=== PATIENT | female | born 1955 | race Caucasian/White ===

== ENCOUNTER 2024-08-01 13:15 | Emergency (ER) | payer MEDICARE, SELFPAY ==
--- NOTE | 2024-08-01 13:19 | ED.URI ---
HPI - URI/Sore Throat General Chief Complaint: Upper Respiratory Infection Stated Complaint: wheezing, covid+ Friday Time Seen by Provider: 08/01/24 13:19 Source: patient Mode of arrival: ambulatory Limitations: no limitations History of Present Illness HPI Narrative: Prabhjot is a 60-year-old female patient presenting to the clinic today with complaints of wheezing. She reports she tested positive for COVID on Friday. She denies any shortness of breath or chest pain. Reports that when she was lying down last night she had a mildly productive cough and felt as though she was wheezing. No fevers or chills. She is a nonsmoker. No history of asthma or COPD. MD elicited complaint: sore throat and nasal congestion Related Data Home Medications Medication Instructions Recorded Confirmed aspirin 81 mg chewable tablet 81 mg PO DAILY 08/01/24 08/01/24 atorvastatin 20 mg tablet 20 mg PO HS 08/01/24 08/01/24 carvedilol 25 mg tablet 25 mg PO BID 08/01/24 08/01/24 hydrochlorothiazide 12.5 mg capsule 12.5 mg PO EVERY OTHER DAY 08/01/24 08/01/24 levothyroxine 88 mcg tablet 88 mcg PO DAILY 08/01/24 08/01/24 losartan 100 mg tablet 100 mg PO DAILY 08/01/24 08/01/24 Allergies Allergy/AdvReac Type Severity Reaction Status Date / Time diphenhydramine AdvReac Intermediate Jittery Verified 08/01/24 13:36 [From Benadryl] lisinopril AdvReac Mild Cough Verified 08/01/24 13:36 Review of Systems Review of Systems: Pertinent positives per HPI. Patient denies any fever, chills, rash, headache, visual changes, dizziness, shortness of breath, chest pain, palpitations, nausea, vomiting, diarrhea, constipation, abdominal pain, or any urinary issues. PMFSH Comments At the time of my signature, I reviewed and agree with the nursing past medical, surgical, social, and family history. There is no relevant family history pertinent to the patient complaint. Exam Narrative: General: Well-developed, well nourished, in no apparent distress Head: Normocephalic, atraumatic Eyes: Pupils equally round and reactive to light bilaterally, EOM intact, sclera and conjunctive clear, no discharge, lids normal Ears: TMs intact and clear, ear canals clear, no drainage, grossly hearing normal. Nose: Nares patent, no discharge, no inflammation, no sinus tenderness. Mouth: Oral pharynx without lesions or masses, good dentition, MMM. Neck: Supple, trachea midline, no enlargement of anterior or posterior cervical nodes, no thyroid masses or goiter palpable. Cardio: Regular rate and rhythm, s1 and s2 normal, no murmur appreciated. Resp: Clear to auscultation bilaterally, no rhonchi, rales, wheezing or rubs Course Course Emergency Course: Portions of this record may have been created with voice recognition software. Level of Care: Express Care Visit Vital Signs Vital signs: Vital Signs Temperature 36.4 C L 08/01/24 13:31 Pulse Rate 75 08/01/24 13:31 Respiratory Rate 18 08/01/24 13:31 Blood Pressure 139/94 H 08/01/24 13:31 Pulse Oximetry 97 08/01/24 13:31 Oxygen Delivery Room Air 08/01/24 13:31 Temperature 36.4 C L 08/01/24 13:31 Pulse Rate 75 08/01/24 13:31 Respiratory Rate 18 08/01/24 13:31 Blood Pressure 139/94 H 08/01/24 13:31 Pulse Oximetry 97 08/01/24 13:31 Oxygen Delivery Room Air 08/01/24 13:31 Vital signs reviewed MDM - URI/Sore Throat MDM Narrative Medical decision making narrative: At the time of visit patient is resting comfortably on the exam table. Patient appears to be nontoxic. Plan: I suspect patient has intermittent wheezing with COVID-19. Will send in prescription for albuterol inhaler. Supportive measures were discussed with the patient and they voiced understanding discharge instructions and agrees to treatment plan. Return precautions reviewed Differential Diagnosis Differential diagnosis: Likely upper respiratory infection, otitis media, sinusitis, viral infection, bronchi
[2024-08-01 13:31] VITALS: BP 139/94; PULSE 75; RESP 18; TEMP 36.4; O2SAT 97
== END 2024-08-01 13:39 | disposition home or self-care (01) ==
PROVIDERS: Emergency Provider Nurse Practitioner Family; PCP Family Medicine Sports Medicine
DX: U07.1 COVID-19 (principal); E78.00 Pure hypercholesterolemia, unspecified; I10 Essential (primary) hypertension; E03.9 Hypothyroidism, unspecified; Z86.16 Personal history of COVID-19; Z79.82 Long term (current) use of aspirin
CPT/HCPCS: 99203; G0463

== ENCOUNTER 2025-04-03 08:29 | Emergency (ER) | payer MEDICARE, SELFPAY ==
--- OUTSIDE RECORDS SUMMARY | 2025-04-03 08:31 | XMS_ITS | Continuity of Care Document ---
Author Organization [facility] Address [address] [place] [id number] Phone Care Team Providers Care Road Worker Name Role Phone Jamal Fung MD Unavailable Unavailable Allergies, Adverse Reactions, Alerts Substance Reaction Status Criticality No Known Allergies Active No Inform ation Medications Medication Instructions Dosage Effective Dates (start - stop) Status Comments hydrochlorothiazide 25 mg tablet - Active metoprolol tartrate 25 mg tablet - Active aspirin 81 mg tablet,delayed release - Active Fish Oil 1,000 mg capsule - Acti ve Vitamin D3 1,000 unit capsule - Active Procedures Procedure Date RADEX HIP UNI COMPL MINIMUM 2 VIEWS RADEX PELVIS 1/2 VIEWS OFFICE/OUTPATIENT VISIT EST RADEX PELVIS 1/2 VIEWS RADEX HIP UNI COMPL MINIMUM 2 VIEWS POSTOP FOLLOW-UP VISIT POSTOP FOLLOW-UP VISIT POSTOP FOLLOW-UP VISIT POSTOP FOLLOW-UP VISIT OFFICE/OUTPATIENT VISIT NEW Advance Directives Directive Yes / No Effective Date File Name No Information Encounters Encounter Description Practice Location Reason(s) For Visit Diagnoses Date Provider Providers Copied on Encounter OFFICE/OUTPAT IENT VISIT EST [facility] , [address] [facility] [address], [place], [address], [place] [phone] [facility] Status post total hip replacement, leftPrimary osteoarthritis of left hip 5 Antonieta Berry. [address] [place], [place], [id number] . tel: [phone] [facility] , [address] [facility] [address], [address], tel:[phone] [facility] Status post THR (total hip replacement) 5 Fissel Jamal. [address] [facility] [address] [place], [place], [id number] . tel: [phone] [facility] , [address], [address], tel:[phone] [facility] Status post THR (total hip replacement) 5 Fissel Jamal. [address] [facility] [address] [place], [place], [id number] . tel: [phone] [facility] , [address], [address], tel:[phone] [facility] Status post THR (total hip replacement) 5 Fissel Jamal. [address] [facility] [address] [place], [place], [id number] . tel: [phone] OFFICE/OUTPAT IENT VISIT NEW [facility] , [address], [address], tel:[phone] [facility] Osteoarthritis of left hip 5 Fissel Jamal. [address] [facility] [place], [id number] . tel: [phone] Referring Provider: Meron Baltazar[address], [place], [address] . tel:[phone] Family History Family Member Type Diagnosis Age At Onset Sister Problem (finding) Leukemia Father Problem (finding) Cardiovascular disease Mother Problem (finding) Arthritis Payers Payer name Insurance type Covered constitution party ID Authorrosalbaa tizhou(s) [facility] Choice/Choice Plus E2 [id number] Social History Type Description Quantity Date Captured Comments Alcohol Use Details Unknown Caffeine Use Details Unknown Tobacco Use Status Smoking Status No Information Sex Female Chief Complaint And Reason For Visit No Information Reason For Referral Reason For Referral No Information Plan Of Treatment Date Type Action Status Referral Ordered: RADEX HIP UNI COMPL MINIMUM 2 VIEWS LT ordered Referral Ordered: RADEX PELVIS 1/2 VIEWS ordered History Of Present Illness Encounter Date Complaint History Of Prese nt Illness No Information Functional Status Date Functional Assessmen t No Information Instructions Date Instruction Additional Infor matdb Home exercise program. Related t o Status post total hip replacement, left Home exercise program. Related t o Status post THR (total hip replacement) Discussed treatment options Rela awa to Status post THR (total hip replacement) Home exercise program. Related t o Status post THR (total hip replacement) Home exercise program. Related t o Status post THR (total hip replacement) Home exercise program. Related t o Osteoarthritis of left hip Discussed surgical options Relat ed to Osteoarthritis of left hip Assessments Type Assessment Date assessment Status post total hip replacemen t, left assessment Primary osteoarthritis of left h ip Patient Care Teams Name Effective Dates (start - stop) Status Members No Information
--- OUTSIDE RECORDS SUMMARY | 2025-04-03 08:34 | XMS_ITS | Continuity of Care Document ---
Author Organization [facility] Address [address] [place] [address] Phone Care Team Providers Care Engineering Agent Name Role Phone Jamal Fung MD Unavailable [...] OFFICE/OUTPAT IENT VISIT EST [facility] , [address] [facility] [address], [place], [address], [place] [phone] [facility] Status post total hip replacement, leftPrimary osteoarthritis of left hip 5 Antonieta Berry. [address] [place], [place], [id number] . tel: [phone] [facility] , [address] [facility] [address], [address], tel:[phone] [facility] Status post THR (total hip replacement) 5 Fissel Jamal. [address] [facility] [address] [place], [place], [id number] . tel: [phone] [facility] , [address], [address], tel:[phone] [facility] Status post THR (total hip replacement) 5 Fissel Jamal. [address] [facility] [address] [place], [place], [id number] . tel: [phone] [facility] , [address], [address], tel:[phone] [facility] Status post THR (total hip replacement) 5 Fissel Jamal. [address] [facility] [address] [place], [place], [id number] . tel: [phone] OFFICE/OUTPAT IENT VISIT NEW [facility] , [address], [address], tel:[phone] [facility] Osteoarthritis of left hip 5 Fissel Jamal. [address] [facility] [place], [address] . tel: [phone] Referring Provider: Meron Balta[address], [place], [address] . tel:[phone] Family History Family Member Type Diagnosis Age At Onset Sister Problem (finding) Leukemia Father Problem (finding) Cardiovascular disease Mother Problem (finding) Arthritis Payers Payer name Insurance type Covered libertarian ID Authorrosalbaa tizhou(s) [facility] Choice/Choice Plus E2 [id number] Social History Type Description Quantity Date Captured [...]
--- OUTSIDE RECORDS SUMMARY | 2025-04-03 08:35 | XMS_ITS | Clinical Summary ---
Author Organization [facility] Address [address] [place] [address] Care Team Providers Care Cloth Washer Operator Name Role Phone GraceMeron Giovanny DAS Primary Care Provider [phone] Alan Santamaria MD, Mendoza Unavailable [phone] Neida Geiger ANP- Unavailable [phone] Allergies Active Allergy Reactions Criticality Noted Date Comments Diphenhydramine Other (see comment) Low 03/05/2018 agitated Lisinopril Cough Medium 10/05/2018 2015 Medications aspirin EC 81 MG tablet Take 1 tablet (81 mg total) by mouth daily. 30 tablet 11 8 Active Cholecalciferol (VITAMIN D3) 50 MCG (2000 UT) Cap Take 2 capsules by mouth daily. Active vitamin B-12 (CYANOCOBALAMIN) 500 MCG tablet Take 5 tablets (2,500 mcg total) by mouth daily. Active atorvastatin (LIPITOR) 20 MG tabletIndications:A (arteriosclerotic vascular disease) Take 1 tablet (20 mg total) by mouth nightly at bedtime. 90 tablet 1 5 Active carvedilol (COREG) 25 MG tabletIndications:A (arteriosclerotic vascular disease) Take 1 tablet (25 mg total) by mouth 2 (two) times daily with meals. 180 tablet 1 5 Active hydroCHLOROthiazide (MICROZIDE) 12.5 MG capsuleIndications: Essential hypertension Take 1 capsule (12.5 mg total) by mouth every other day. 45 capsule 1 5 Active levothyroxine (SYNTHROID) 88 MCG tabletIndications:A cquired hypothyroidism Take 1 tablet (88 mcg total) by mouth daily. 90 tablet 3 5 Active losartan (COZAAR) 100 MG tabletIndications:E ssential hypertension Take 1 tablet (100 mg total) by mouth daily. 90 tablet 1 5 Active Active Problems Problem Noted Date Diagnosed Date B12 deficiency 02/01/2025 ASVD (arteriosclerotic vascular disease) 020 Family history of brain aneurysm 01/27/2020 GI bleed 12/22/2018 Thoracic aortic aneurysm without rupture 019 Overview (12/20/2021): Last Assessment & Plan: Stable on TTE today Follow up with [facility] in 2022 Continue BB Ascending aorta enlargement 04/30/2018 Overview (10/05/2018): Date Onset: 04/30/2018 PFO (patent foramen ovale) ([facility]) 04/30/2018 Overview (10/05/2018): Date Onset: 04/30/2018 Essential hypertension 03/17/2018 Overview (05/11/2020): Date Onset: 04/30/2018 Dyslipidemia 03/17/2018 Anxiety 02/23/2018 Overview (10/05/2018): Date Onset: 02/23/2018 Chest pain 02/23/2018 Overview (10/05/2018): Date Onset: 02/23/2018 DJD (degenerative joint disease), thoracic 02/23 Overview (10/05/2018): Date Onset: 02/23/2018 Fatty liver 02/23/2018 Overview (10/05/2018): Date Onset: 02/23/2018 Hemangioma of liver 02/23/2018 Overview (10/05/2018): Date Onset: 02/23/2018 SHAIKH (nonalcoholic steatohepatitis) 02/23/2018 Overview (10/05/2018): Date Onset: 02/23/2018 Obesity (BMI 30-39.9) 02/23/2018 Overview (10/05/2018): Date Onset: 07/21/2017 Overweight 02/23/2018 Overview (10/05/2018): Date Onset: 02/23/2018 Umbilical hernia 02/23/2018 Overview (10/05/2018): Date Onset: 02/23/2018 Hypothyroidism 07/21/2017 Overview (10/05/2018): Date Onset: 07/21/2017 Vitamin D deficiency 07/15/2017 Overview (10/05/2018): Date Onset: 07/15/17 Surgical follow-up care 05/15/2015 Overview (10/05/2018): Date Onset: 05/15/2015 Mixed hyperlipidemia 05/04/2012 Overview (12/20/2021): Last Assessment & Plan: Continue high intensity statin. Resolved Problems Problem Noted Date Diagnosed Date Resolved Date Usual interstitial pneumonit is ([facility]) 02/23/2018 12/31/2022 Overview (10/05/2018): Date Onset: 02/23/2018 Encounters Date Type Department Care Team Description 02/01/2025 9:40 AM CDT Office Visit [address] [place] [address] Meron Grace, DO Medication Management (Pt states she forgot to take her BP meds this am.//AB) 02/01/2025 Travel from Last 3 Months Immunizations Immunization Administration Dates Next Due Arexvy Respiratory Syncytial Virus (RSV, adjuvanted) 0.5 mL, PF 08/09/2023 Fluzone 6 Months+ Quad (0.5 mL Prefilled Syringe) 08/03/2020,08/02/2019 Fluzone High Dose (IIV, triv alent, 0.5mL) 09/18/2024 Fluzone High Dose - >Age 65 (Prefilled Syringe) 08/09/2023,08/17/2022,08/29/2021 Influenza (Generic) 09/07/2018,08/26/2017 Influenza Adult (Generic) 08/29/2021,08/2020,08/03/2020,2018,08/02/2019,09/07/2018,09/07/2018,1 ,08/26/2017,08/28/2016, 016 MODERNA COVID-19 (12+) MRNA, LNP-S, PF, 100 MCG/ 0.5 ML DOSE 10/01/2021,10/01/2021,01/10/2021,2020,12/13/2020,12/13/2020 MODERNA COVID-19 (APPLICATION ARCHITECT MANAGER MARCIO ARLINE), MRNA, LNP-S, PF, 50 MCG/ 0.25 ML DOSE 06/25/2022 PFIZER COVID-19 BIVALENT (12 +) mRNA, LNP-S, PF, 30 MCG/0.3 ML DOSE 08/17/2022 Pneumococcal (Pneumovax 23) 03/15/2023 Pneumococcal (Prevnar 13) 08/29/2021,08/29/2021 Shingrix 08/02/2019, 9,06/01/2019,2018 Td (TDVAX) 09/19/2006 Tdap (Generic) 08/09/2017,08/09/2017,08/09/2017 Tetanus/Diptheria 09/19/2006 Zoster (Zostavax) 18992 Unt/0.65Ml 08/09/2017, Family History Medical History Relation Comments Cancer Brother 4 Kidney myotonic dystrophy Daughter 1 Hypertension Father Open Heart Father Stent Cardiac Father Stroke Father Aneurysm Mother Arthritis Mother Cancer Sister 3 Leukemia Relation Status Comments Brother 1 Brother 2 Alive Brother 3 Alive Brother 4 Daughter 1 Alive Daughter 2 Alive Father Mother Alive Sister 1 Sister 2 Sister 3 Son Alive Social History Tobacco Use Types Packs/Day Years Used Date Smoking Tobacco: Former Cigarettes 0.3 15 Q uit: 2008 Passive Smoke Exposure: Past Smokeless Tobacco: Never Tobacco Cessation:Counseling Given: No Alcohol Use Standard Drinks/Week Comments Yes 0 (1 standard drink = 0.6 oz pur e alcohol) Rarely. Ine drink every 6 mo PHQ-2 Answer Date Recorded Patient Health Questionnaire-2 Score 0 02/01/2025 Comments No Sex and Gender Information Value Date Recorded Sex Assigned at Female 02/01/2025 9:36 AM CDT Legal Sex Female 5:35 PM CDT Gender Identity Not on file Sexual Orientation Not on file Occupation Industry Job Start Date Job End Date Not on file Not on file Not on file Not on file Last Filed Vital Signs Vital Sign Reading Time Taken Comments Blood Pressure 146/80 02/01/2025 9:40 AM CDT Pulse 74 02/01/2025 9:32 AM CDT Temperature 36.6 C (97.8 F) 02/01/2025 9:32 AM CDT Respiratory Rate 12 02/01/2025 9:32 AM CDT Oxygen Saturation 96% 02/01/2025 9:32 AM CDT Inhaled Oxygen Concentration - - Weight 83.5 kg (184 lb) 02/01/2025 9:32 AM CDT Height 157.5 cm (5' 2 ) 02/01/2025 9:32 AM CDT Body Mass Index 33.65 02/01/2025 9:32 AM CDT Plan of Treatment Health Maintenance Due Date Last Done Comments Hepatitis C 1973 Annual Medicare Wellness Visit 2020 COVID-19 Vaccine ( season) 2024 09/19/2023, 08/17/2022, 06/25/2022, Additional history exists ASCVD LDL 08/05/2024 08/05/2023, 03/24, 03/15/2021, Additional history exists Colorectal Cancer Screening FIT-DNA (3 Years) 04/10/2025 04/10/2022, 04/10/2022 Mammogram Screening 02/25/2026 02/26/2024, 10/22/2022, 03/22/2021, Additional history exists DTaP, Tdap and Td Vaccines (4 - Td or Tdap) 08/09/2027 08/09/2017, 08/09/2017, 08/09/2017, Additional history exists Zoster Vaccines Completed 08/02/2019, 07/2019, 06/01/2019, Additional history exists Dexa Scan (General) Completed 03/22/2021, Pneumococcal Vaccine: 50+ Years Completed 03/15/2023, 08/29/2021, 08/29/2021 RSV Immunization or 60+ Years Completed 08/09/2023 PHQ-2 (Physician [place]) Completed 02/01/2025 Meningococcal B Vaccine Aged Out No l onger eligible based on patient's age to complete this topic Meningococcal Vaccine Aged Out No mihir irais eligible based on patient's age to complete this topic RSV Immunizations Under 20 Months Aged Out No longer eligible based on patient's age to complete this topic Procedures Procedure Name Priority Date/Time Associated Diagnosis Comments MAMMOGRAM GENERIC (SCAN ORDER) 02/26/2024 LIPID PANEL Routine 08/05/2023 8:15 AM CDT Essential hypertension Dyslipidemia COLOGUARD (EXACT SCIENCE) Routine 04/10/2022 5:28 PM CDT Colon cancer screening BONE DENSITY/DEXA Routine 03/22/2021 12: 00 AM CDT Post-menopausal from Last 3 Months or Most Recently Relevant to Health Maintenance Results * MAMMOGRAM GENERIC (SCAN ORDER) (02/26/2024) Anatomical Region Laterality Modality Other 02/26/2024 us Doc [facility] Scanned SCANNING Final Resu lt * LIPID PANEL (08/05/2023 8:15 AM CDT) CHOLESTEROL 131 0 - 200 MG/DL 08/05/2023 9:44 AM CDT [facility] TRIGLYCERIDES 105 0 - 150 MG/DL 08/05/2023 9:44 AM CDT [facility] HDL 49 >40 MG/DL 08/05/2023 9:44 AM CDT [facility] LDL (CALCULATED) 61 <100 MG/DL 08/05/2023 9:44 AM CDT [facility] NON HDL CHOLESTEROL 82 0 - 130 MG/DL 08/05/2023 9:44 AM CDT [facility] Comment: NOTE: WHEN THE TRIGLYCERIDES ARE >200 mg/dL, NON HDL C IS A SECONDARY TARGET OF THERAPY, WITH A GOAL 30 mg/dL HIGHER THAN THE IDENTIFIED LDL C GOAL. CHOL/HDL RATIO 2.7 0.0 - 4.5 08/05/2023 9:44 AM CDT [facility] VLDL CALCULATION 21 5 - 55 MG/DL 08/05/2023 9:44 AM CDT [facility] LIPID INTERPRETATION 08/05/2023 9:44 AM CDT [facility] Comment: NIH CONCENSUS REPORT RECOMMENDATIONS: ADULT CHILD LOW RISK: CHOLESTEROL <200 <170 TRIGLYCERIDE <150 --- HDL >=60 --- LDL <100 <110 BORDERLINE: CHOLESTEROL 200-239 170-199 TRIGLYCERIDE 150-199 --- HDL 40-59 --- LDL 100-159 110-129 HIGH RISK: CHOLESTEROL >=240 >=200 TRIGLYCERIDE >=200 --- HDL <40 --- LDL >=160 >=130 08/05/2023 8:15 AM CDT Meron Grace DO LABORATORY Final Result [facility] [address] [place] [address], * COLOGUARD (EXACT SCIENCE) (04/10/2022 5:28 PM CDT) COLOGUARD RESULT Negative Negative [facility] (CLIA #:[id number]) Comment: NEGATIVE TEST RESULT. A negative Cologuard result indicates a low likelihood that a colorectal cancer (CRC) or advanced adenoma (adenomatous polyps with more advanced pre-malignant features) is present. The chance that a person with a negative Cologuard test has a colorectal cancer is less than 1 in 1500 (negative predictive value >99.9%) or has an advanced adenoma is less than 5.3% (negative predictive value 94.7%). These data are based on a prospective cross-sectional study of 10,000 individuals at average risk for colorectal cancer who were screened with both Cologuard and colonoscopy. (Ale Thomas al, N Engl J Med 2014;370(14):8327-0204) The normal value (reference range) for this assay is negative. COLOGUARD RE-SCREENING RECOMMENDATION: Periodic colorectal cancer screening is an important part of preventive healthcare for asymptomatic individuals at average risk for colorectal cancer. Following a negative Cologuard result, the [place] Cancer Society and U.S. Multi-Society Task Force screening guidelines recommend a Cologuard re-screening interval of 3 years. References: [place] Cancer Society Guideline for Colorectal Cancer Screening: https://www.cancer.org/cancer/mwmay-sofxhp-dojptv/tdafobvhe-atqyyuvxa-mtxwqgn/ac s-rec ommendations.html.; Mumtaz MADRIGAL, Emily FREGOSO, Eryn SantosK, Colorectal Cancer Screening: Recommendations for Physicians and Patients from the U.S. Multi-Society Task Force on Colorectal Cancer Screening , Am J Gastroenterology 2017; 112:7922-6797. TEST DESCRIPTION: Composite algorithmic analysis of stool DNA-biomarkers with hemoglobin immunoassay. Quantitative values of individual biomarkers are not reportable and are not associated with individual biomarker result reference ranges. Cologuard is intended for colorectal cancer screening of adults of either sex, 45 years or older, who are at average-risk for colorectal cancer (CRC). Cologuard has been approved for use by the U.S. FDA. The performance of Cologuard was established in a cross sectional study of average-risk adults aged 50-84. Cologuard performance in patients ages 45 to 49 years was estimated by sub-group analysis of near-age groups. Colonoscopies performed for a positive result may find as the most clinically significant lesion: colorectal cancer [4.0%], advanced adenoma (including sessile serrated polyps greater than or equal to 1cm diameter) [20%] or non- advanced adenoma [31%]; or no colorectal neoplasia [45%]. These estimates are derived from a prospective cross-sectional screening study of 10,000 individuals at average risk for colorectal cancer who were screened with both Cologuard and colonoscopy. (Ale Springer et al, N Engl J Med 2014;370(14):4530-9680.) Cologuard may produce a false negative or false positive result (no colorectal cancer or precancerous polyp present at colonoscopy follow up). A negative Cologuard test result does not guarantee the absence of CRC or advanced adenoma (pre-cancer). The current Cologuard screening interval is every 3 years. ([place] Cancer Society and U.S. Multi-Society Task Force). Cologuard performance data in a 10,000 patient pivotal study using colonoscopy as the reference method can be accessed at the following location: www.[employer] Experience.Acorio/results. Additional description of the Cologuard test process, warnings and precautions can be found at www.cologuard.Acorio. STOOL STOOL SPECIMEN / Unknown 04/10/2022 5:28 PM CDT 04/12/2022 9:35 AM CDT Meron Baltazar Grace DO BODY FLUIDS AND STOOLS ORDERABLE S Final Result [facility] ([facility]) [address] [place] [place] [address], [facility] (CLIA #:[id number]) [address] [place] [address] [place] [address] * BONE DENSITY/DEXA (03/22/2021 12:00 AM CDT) Anatomical Region Laterality Modality Bone Bone Density 03/22/2021 Meron Grace DO DEXA Final Result from Last 3 Months or Most Recently Relevant to Health Maintenance Insurance MEDICARE AARP Care Teams Cloth Washer Operator Relationship Specialty Start Date End Date Meron Grace DO [address] [place] [address] PCP - General FAMILY PRACTICE 02/20/18 [place] Phillips MD [address] [place] [address] [place] [employer] CARDIOVASCULAR DISEASE 02/20/18 Neida Geiger ANP- [address] [place] [address] [id number] [place] [address] CARDIOVASCULAR DISEASE 03/05/18
--- OUTSIDE RECORDS SUMMARY | 2025-04-03 08:35 | XMS_ITS | Encounter Summary ---
Author Organization [facility] Address Formerly [facility] [place] [address] Care Team Providers Care Family Practice Medical Doctor Name Role Phone Meron Grace Giovanny DAS Primary Care Provider [phone] Alan Santamaria MD, Mendoza Unavailable [phone] Neida Geiger BANNER Unavailable [phone] Encounter Details Date Type Department Care Team (Late st Contact Info) Description 05/01/2018 Abstract [facility] [address] [place] [address] Mendoza Phillips MD [address] [address] Social History Tobacco Use Types Packs/Day Years Used Date Smoking Tobacco: Former Cigarettes Q uit: 2008 Smokeless Tobacco: Never Alcohol Use Standard Drinks/Week Comments Yes 0 (1 standard drink = 0.6 oz pur e alcohol) rarely Comments Unknown Sex and Gender Information Value Date Recorded Sex Assigned at Female 02/01/2025 9:36 AM CDT Legal Sex Female 5:35 PM CDT Gender Identity Not on file Sexual Orientation Not on file Occupation Industry Job Start Date Job End Date Not on file Not on file Not on file Not on file documented as of this encounter Plan of Treatment Not on file documented as of this encounter Procedures Procedure Name Priority Date/Time Associated Diagnosis Comments LIPID PANEL Routine 04/24/2018 documented in this encounter Results * LIPID PANEL (04/24/2018) CHOLESTEROL 143 HDL 42 TRIGLYCERIDES 107 LDL (CALCULATED) 80 04/24/2018 us Doc [facility] LABORATORY Final Result documented in this encounter Visit Diagnoses Not on filedocumented in this encounter Additional Health Concerns Infection Onset Date Last Indicated Resolved Time COVID-19 Confirmed 04/17/2022 04/17/2022 12:33 AM CDT COVID-19 Rule Out 04/18/2022 04/18/2022 04/18/2022 4:23 PM CDT COVID-19 Rule Out 01/03/2024 01/03/2024 01/06/2024 10:36 AM RN COMMUNITY COVID-19 Rule Out 01/09/2024 01/09/2024 01/09/2024 9:01 AM RN COMMUNITY documented as of this encounter Care Teams Family Practice Medical Doctor Relationship Specialty Start Date End Date Meron Grace DO [address] [place] [address] PCP - General FAMILY PRACTICE 02/20/18 [place] Phillips MD [address] [place] [address] [employer] CARDIOVASCULAR DISEASE 02/20/18 Neida Geiger ANP- [address] [place] [address] [address] [place] [address] CARDIOVASCULAR DISEASE 03/05/18 documented as of this encounter
[2025-04-03 08:37] VITALS: BP 113/59; PULSE 76; RESP 18; TEMP 37.1; O2SAT 98
--- NOTE | 2025-04-03 08:55 | ED.URI ---
HPI - URI/Sore Throat General Chief Complaint: Upper Respiratory Infection Stated Complaint: cold symptoms Time Seen by Provider: 04/03/25 08:53 Source: patient, RN notes reviewed and old records reviewed Mode of arrival: ambulatory Limitations: no limitations History of Present Illness HPI Narrative: 69 year old female presents to [facility] care with complaints of productive cough of yellowish tinged mucous, nasal congestion and drainage, sore throat and some body aches for the past 4 days. Patient reports that she watched sick grandchildren prior to her becoming ill. Patient reports that she has been taking Zyrtec, Ibuprofen and also some Coricidin cold medication. Patient reports that she has not had any fevers but has had some chills.. MD elicited complaint: cough, sore throat, rhinorrhea, nasal congestion and other (body aches.) Pertinent past history: sinusitis and other (bronchitis, strep throat) Onset (ago): day(s) (4) Severity: moderate Able to tolerate fluids by mouth: Yes Treatments prior to arrival: ibuprofen and cold medicine (Coricidin, Zyrtec) Related Data Home Medications ?Medication ?Instructions ?Recorded ?Confirmed ?Last Taken ?Type aspirin 81 mg chewable tablet 81 mg PO DAILY 08/01/24 08/01/24 Unknown History atorvastatin 20 mg tablet 20 mg PO HS 08/01/24 08/01/24 Unknown History carvedilol 25 mg tablet 25 mg PO BID 08/01/24 08/01/24 Unknown History hydrochlorothiazide 12.5 mg capsule 12.5 mg PO EVERY OTHER DAY 08/01/24 08/01/24 Unknown History levothyroxine 88 mcg tablet 88 mcg PO DAILY 08/01/24 08/01/24 Unknown History losartan 100 mg tablet 100 mg PO DAILY 08/01/24 08/01/24 Unknown History cholecalciferol (vitamin D3) 250 10,000 unit PO DAILY 04/03/25 04/03/25 Unknown History mcg (10,000 unit) capsule cyanocobalamin (vitamin B-12) 5,000 mcg PO DAILY 04/03/25 04/03/25 Unknown History 5,000 mcg capsule Allergies Allergy/AdvReac Type Severity Reaction Status Date / Time diphenhydramine (From AdvReac Intermediate Jittery Verified 04/03/25 08:43 Benadryl) lisinopril AdvReac Mild Cough Verified 04/03/25 08:43 Review of Systems Review of Systems: CONSTITUTIONAL: Reports malaise, chills, sweats, no known fever. EYES: Denies visual changes, redness, or discharge. ENT: Reports rhinorrhea, congestion, sinus pain,no otalgia and positive for sore throat. CARDIOVASCULAR: Denies chest pain, palpitations, or edema. RESPIRATORY: Reports productive cough.? Denies dyspnea. GASTROINTESTINAL: Denies abdominal pain, nausea, vomiting, diarrhea SKIN: Denies rash or itching. MUSCULOSKELETAL: reports myalgia. NEUROLOGIC: Denies headache. All systems reviewed & are unremarkable except as noted in HPI and below PMFSH Past Medical History Medical History Hypothyroidism Aneurysm of heart under surveillance Hyperlipidemia Hypertension Surgical History Surgical History H/O breast biopsy H/O: section x3 Social History Social History Smoking status: Never smoker Alcohol intake: current Alcohol use details: social Substance use type: does not use Living arrangements: with family Gender identity (if verbalized by the patient): Female Comments At time of signature, agree with nursing past medical, surgical, social and family history. There is no relevant family history pertinent to the presenting complaint Exam Narrative: GENERAL: Well-appearing, well-nourished, and in no acute distress. HEAD: Normocephalic EYES: PERRLA, conjunctivae clear ENT: Nares clear, turbinates edematous and erythematous, yellowish discharge. Mucous membranes moist. TM pearly bond with dull light reflex bilaterally; no tragal tenderness. Oropharynx erythematous without lesions. Tonsils not enlarged and without exudate, no drooling, no hoarseness, no trismus, uvula midline.post nasal drainage. NECK: Supple. No lymphadenopathy CHEST: Clear to auscultation, breath sounds equal. No wheezing, rhonchi, rales, or stridor. No respiratory distress, speaks in full sentences.productive cough of yellowish phlegm SAO2 98% on room air HEART: Regular rate and rhythm. No murmur heard. SKIN: Warm, dry, no rash. NEURO: Alert and oriented x3. PSYCH: Normal mood and affect Course Course Emergency Course: Patient is aware of diagnosis, understands and agrees to treatment plan.? Anticipatory guidance given.? Patient agrees to follow-up as directed and is aware of reasons to seek care at the emergency department. Portions of this record may have been created with voice recognition software Level of Care: Express Care Visit Vital Signs Vital signs: Vital Signs Temperature 37.1 C 04/03/25 08:37 Pulse Rate 76 04/03/25 08:37 Respiratory Rate 18 04/03/25 08:37 Blood Pressure 113/59 L 04/03/25 08:37 Pulse Oximetry 98 04/03/25 08:37 Oxygen Delivery Room Air 04/03/25 08:37 Temperature 37.1 C 04/03/25 08:37 Pulse Rate 76 04/03/25 08:37 Respiratory Rate 18 04/03/25 08:37 Blood Pressure 113/59 L 04/03/25 08:37 Pulse Oximetry 98 04/03/25 08:37 Oxygen Delivery Room Air 04/03/25 08:37 Reviewed MDM - URI/Sore Throat MDM Narrative Medical decision making narrative: Differential diagnosis considered: Mcintosh virus, strep pharyngitis, allergic rhinitis, upper respiratory tract infection, sinusitis, rhinosinusitis, nasopharyngitis. viral pharyngitis, otitis media, otitis externa, pneumonia, bronchitis, viral cough syndrome, viral syndrome, and influenza.? Exam findings show no acute concerns or changes; patient is non-toxic appearing and is in no distress.? Patient is appropriate for outpatient treatment and follow-up. Differential Diagnosis Differential diagnosis: Likely upper respiratory infection, sinusitis, viral infection, bronchitis, influenza, pharyngitis and other (strep pharyngitis, COVID, acute cough) Lab Data Attestation: I reviewed the patient's lab results. Lab results narrative: Influenza A negative, Influenza B negative, COVID antigen negative, Strep screen negative culture sent Labs: Lab Results 04/03/25 Range/Units 09:08 POC Influenza A Ag Negative (Negative) POC Influenza B Ag Negative (Negative) POC SARS CoV-2 Ag Negative (Negative) POC Grp A Strep Screen Negative (Negative) Critical Care Time Critical Care Time Critical Care Time: No Discharge Plan Discharge Clinical Impression: Upper respiratory infection Qualifiers: URI type: unspecified URI Qualified Code(s): J06.9 - Acute upper respiratory infection, unspecified Pharyngitis Qualifiers: Pharyngitis/tonsillitis etiology: unspecified etiology Qualified Code(s): J02.9 - Acute pharyngitis, unspecified Patient Disposition: Home Condition: Stable Instructions: Antibiotic Form, Pharyngitis (ED), Upper Respiratory Infection (ED) Additional Instructions: Increase fluids especially juices and water [id number] cough and cold medicine of your choice for your symptoms Zyrtec Claritin or Mary daily include Coricidin brand decongestant Steroids as directed--take with food heat to the face 20-30 minutes 4-6 times a day for pain Salt water gargles, throat lozenges or throat sprays as desired Antibiotic as directed--finished the medication Tylenol or ibuprofen for any fever pain If your symptoms persist, change or worsen significantly before you can contact your personal physician then please, without delay, go to the emergency department for further evaluation. Follow-up with PCP in 7-10 days or sooner if needed Patient Language: [place] Prescriptions: New amoxicillin 875 mg tablet 875 mg PO Q12H Qty: 20 0RF Rx Instructions: take with food complete all doses prednisone 20 mg tablet 20 mg PO BID Qty: 10 0RF Rx Instructions: am and early pm No Action cyanocobalamin (vitamin B-12) 5,000 mcg capsule 5,000 mcg PO DAILY cholecalciferol (vitamin D3) 250 mcg (10,000 unit) capsule 10,000 unit PO DAILY carvedilol 25 mg tablet 25 mg PO BID atorvastatin 20 mg tablet 20 mg PO HS levothyroxine 88 mcg tablet 88 mcg PO DAILY hydrochlorothiazide 12.5 mg capsule 12.5 mg PO EVERY OTHER DAY losartan 100 mg tablet 100 mg PO DAILY aspirin [Baby Aspirin] 81 mg Tablet,Chewable 81 mg PO DAILY Follow-up/Referrals: Sanjay,Meron Terry DO [Primary Care Provider] - Time of Disposition: :09 Quality [place] Coma Scale Eyes: Open Verbal: Oriented and Alert Motor: Follows Commands [place] Coma Total Score: 15
[2025-04-03 09:09] LABS: EDCOVIDSCREEN Negative (Negative); EDINFLUASCREEN Negative (Negative); EDINFLUBSCREEN Negative (Negative); EDSTREPNEGPOS1 Negative (Negative)
== END 2025-04-03 09:20 | disposition home or self-care (01) ==
PROVIDERS: Emergency Provider Registered Nurse; PCP Family Medicine Sports Medicine
DX: J06.9 Acute upper respiratory infection, unspecified (principal); J02.9 Acute pharyngitis, unspecified; Z20.822 Contact with and (suspected) exposure to COVID-19; E03.9 Hypothyroidism, unspecified; I25.3 Aneurysm of heart; I10 Essential (primary) hypertension; E78.5 Hyperlipidemia, unspecified; Z79.82 Long term (current) use of aspirin
CPT/HCPCS: 87081; 87426; 87804; 87880; 99213; G0463